=== PATIENT | male | born 2000 | race African-American/Black ===

== ENCOUNTER 2021-05-14 21:34 | Emergency (ER) | payer OTHER ==
[~2021-05-14] VITALS: Ht 167.6 cm; Wt 59.0 kg
[2021-05-14 21:38] VITALS: BP 121/71
[2021-05-14] MEDS ORDERED: AUGMENTIN 875-1 EACH PO (22:04)
== END 2021-05-14 22:24 | disposition home or self-care (01) ==
LOC: ER 21:34
DX: S61.051A Open bite of right thumb without damage to nail, initial encounter (principal); J45.909 Unspecified asthma, uncomplicated; W54.0XXA Bitten by dog, initial encounter; Y93.89 Activity, other specified; Y92.89 Other specified places as the place of occurrence of the external cause; Y99.8 Other external cause status